=== PATIENT | female | born 1980 | race Caucasian/White ===

== ENCOUNTER → 2018-07-23 | Outpatient (CLI) | payer OTHER ==
--- NOTE | 2018-07-23 15:40 | Diagnostic Imaging Report ---
INDICATION: Left axillary lump. TECHNIQUE: Sonographic interrogation of the area of lump in the left axilla was performed. FINDINGS: No sonographic abnormality is seen. No solid or cystic mass is detected. IMPRESSION: No sonographic abnormality is seen. Close clinical and self followup is recommended to confirm stability of the palpable abnormality. Negative imaging should not necessarily preclude biopsy of a clinically suspicious palpable abnormality. ACR BI-RADS Category 1: Negative. Dictated by: Dictated on workstation # [id number]
--- NOTE | 2018-07-23 15:51 | Diagnostic Imaging Report ---
INDICATION: Palpable lump in the left axilla. No prior mammograms are available for comparison. 2-D and 3-D bilateral diagnostic mammography was performed with a Computer Aided Detection (CAD) system. FINDINGS: Both breasts show marked parenchymal heterogeneity and increased density, limiting the sensitivity of mammography. BB marker is placed at the area of palpable abnormality in left axilla. Mild density at this location is seen, but no discrete mass or malignant-appearing microcalcifications are seen. Both breasts demonstrate some benign calcifications. IMPRESSION: No mammographic features suspicious for malignancy are identified. Even so, sonographic interrogation of the area of palpable abnormality in the left axilla is recommended and will be performed today. ACR BI-RADS Category 0: Incomplete. (Needs additional imaging evaluation). Result letter will be mailed to the patient. Note: At least 10% of breast cancer is not imaged by mammography. Dictated by: Dictated on workstation # [id number]
== END ==
LOC: RAD 13:29
PROVIDERS: ATTEND Family Medicine
DX: N63.32 Unspecified lump in axillary tail of the left breast (principal)
CPT/HCPCS: 76642; 77066

== ENCOUNTER 2020-06-13 23:47 | Emergency (ER) | payer OTHER ==
--- NOTE | 2020-06-14 00:17 | ED Abdominal Pain ---
General Stated Complaint: ABD PAIN Source of Information: Patient Exam Limitations: No Limitations (ATUL GEORGE,) History of Present Illness Date Seen by Provider: Jun 14, 2020 Time Seen by Provider: 00:12 Initial Comments Ms. Zayas is a 39-year-old female who presented to the ED for abdominal pain. It began 3-4 days ago and is progressively increasing. She states it is localized near her belly button and in her right lower quadrant. It will occasionally "shoot up" under her rib cage. It is a 4/10 constantly with increasing pain to 7/10 when it radiates toward her rib cage. Admits to chills and nausea and denies any chest pain, shortness of breath, vomiting, diarrhea, dysuria, hematuria or fevers. Timing/Duration: 3-4 Days Severity/Quality: Mild Location: RLQ, Periumbilical Radiation: Other (under rib cage) Modifying Factors: Improves With Lying down Associated Symptoms: Fever/Chills, Nausea/Vomiting; No Shortness of Air (ATUL GEORGE,) Allergies and Home Medications Allergies Coded Allergies: No Known Drug Allergies (Unverified , 06/14/20) Patient Home Medication List Home Medication List Reviewed: Yes (ATUL GEORGE,) Home Medication List Reviewed: Yes (ROSSANA GRIDER MD) Review of Systems Review of Systems Constitutional: chills; No fever EENTM: No Blurred Vision Respiratory: Denies Cough, Denies Shortness of Air Cardiovascular: Denies Chest Pain, Denies Edema Gastrointestinal: Nausea; Denies Vomiting Genitourinary: Denies Burning, Denies Hematuria Musculoskeletal: No back pain, No muscle pain Skin: No dryness, No rash Psychiatric/Neurological: Denies Headache, Denies Numbness Endocrine: No Symptoms Reported Hematologic/Lymphatic: No Symptoms Reported (ATUL GEORGE,) All Other Systems Reviewed Negative Unless Noted: Yes (ROSSANA GRIDER MD) Past Mycfgdx-Clbpgi-Vkmwye Hx Past Med/Social Hx: Reviewed Nursing Past Med/Soc Hx, Reviewed and Corrections made (ATUL GEORGE,) Patient Social History Alcohol Use: Denies Use Smoking Status: Never a Smoker (ATUL GEORGE,) Past Medical History Surgeries: Yes Hysterectomy Respiratory: No Cardiac: No Neurological: No : No Reproductive Disorders: No Genitourinary: No Gastrointestinal: No Musculoskeletal: No Endocrine: No HEENT: No Cancer: No (ATUL GEORGE,) Family Medical History Reviewed Nursing Family Hx (ROSSANA GRIDER MD) No Pertinent Family Hx (ATUL GEORGE,) Physical Exam Vital Signs Vital Signs - First Documented 06/14/20 00:02 Temp 37.6 Pulse 104 Resp 16 B/P (MAP) 124/76 (92) Pulse Ox 97 O2 Delivery Room Air (ROSSANA GRIDER MD) Vital Signs Capillary Refill : (ATUL GEORGE,) Height/Weight/BMI Height: '" Weight: lbs. oz. kg; BMI Method: General Appearance: WD/WN, mild distress HEENT: PERRL/EOMI, pharynx normal Neck: supple, normal inspection Respiratory: lungs clear, normal breath sounds Cardiovascular: regular rate, rhythm, no murmur Gastrointestinal: normal bowel sounds, soft, tenderness (RLQ) Extremities: non-tender, no pedal edema Back: normal inspection, CVA tenderness (R) Neurologic/Psychiatric: alert, oriented x 3 Skin: normal color, warm/dry (ATUL GEORGE,) General Appearance: WD/WN, mild distress Respiratory: lungs clear, normal breath sounds Cardiovascular: regular rate, rhythm, no murmur Gastrointestinal: soft, tenderness (RLQ) Extremities: non-tender, no pedal edema Back: CVA tenderness (R); No CVA tenderness (L) Neurologic/Psychiatric: alert Skin: normal color, warm/dry (ROSSANA GRIDER MD) Progress/Results/Core Measures Results/Orders Lab Results Laboratory Tests Test 06/14/20 00:15 06/14/20 01:10 Range/Units White Blood Count 8.2 4.3-11.0 10^3/uL Red Blood Count 4.36 4.35-5.85 10^6/uL Hemoglobin 12.1 11.5-16.0 G/DL Hematocrit 37 35-52 % Mean Corpuscular Volume 85 80-99 FL Mean Corpuscular Hemoglobin 28 25-34 PG Mean Corpuscular Hemoglobin Concent 33 32-36 G/DL Red Cell Distribution Width 12.5 10.0-14.5 % Platelet Count 283 130-400 10^3/uL Mean Platelet Volume 9.7 7.4-10.4 FL Immature Granulocyte % (Auto) 1 % Neutrophils (%) (Auto) 74 42-75 % Lymphocytes (%) (Auto) 14 12-44 % Monocytes (%) (Auto) 11 0-12 % Eosinophils (%) (Auto) 0 0-10 % Basophils (%) (Auto) 0 0-10 % Neutrophils # (Auto) 6.1 1.8-7.8 X 10^3 Lymphocytes # (Auto) 1.2 1.0-4.0 X 10^3 Monocytes # (Auto) 0.9 0.0-1.0 X 10^3 Eosinophils # (Auto) 0.0 0.0-0.3 10^3/uL Basophils # (Auto) 0.0 0.0-0.1 10^3/uL Immature Granulocyte # (Auto) 0.0 0.0-0.1 10^3/uL Sodium Level 136 135-145 MMOL/L Potassium Level 4.0 3.6-5.0 MMOL/L Chloride Level 99 98-107 MMOL/L Carbon Dioxide Level 26 21-32 MMOL/L Anion Gap 11 5-14 MMOL/L Blood Urea Nitrogen 13 7-18 MG/DL Creatinine 0.79 0.60-1.30 MG/DL Estimat Glomerular Filtration Rate > 60 BUN/Creatinine Ratio 16 Glucose Level 107 H 70-105 MG/DL Calcium Level 9.8 8.5-10.1 MG/DL Corrected Calcium 8.5-10.1 MG/DL Total Bilirubin 0.4 0.1-1.0 MG/DL Aspartate Amino Transf (AST/SGOT) 25 5-34 U/L Alanine Aminotransferase (ALT/SGPT) 34 0-55 U/L Alkaline Phosphatase 95 40-136 U/L C-Reactive Protein 3.74 H <0.50 MG/DL Total Protein 8.0 6.4-8.2 GM/DL Albumin 4.8 H 3.2-4.5 GM/DL Urine Color YELLOW Urine Clarity CLEAR Urine pH 6.0 5-9 Urine Specific [place] 1.025 H 1.016-1.022 Urine Protein 1+ H NEGATIVE Urine Glucose (UA) NEGATIVE NEGATIVE Urine Ketones 1+ H NEGATIVE Urine Nitrite NEGATIVE NEGATIVE Urine Bilirubin NEGATIVE NEGATIVE Urine Urobilinogen 0.2 < = 1.0 MG/DL Urine Leukocyte Esterase NEGATIVE NEGATIVE Urine RBC (Auto) TRACE H NEGATIVE Urine RBC 2-5 H /HPF Urine WBC 2-5 /HPF Urine Squamous Epithelial Cells 2-5 /HPF Urine Crystals NONE /LPF Urine Bacteria NEGATIVE /HPF Urine Casts NONE /LPF Urine Mucus MODERATE H /LPF Urine Culture Indicated NO (ROSSANA GRIDER MD) My Orders Orders - ROSSANA GRIDER MD Cbc With Automated Diff (06/14/20 00:21) Comprehensive Metabolic Panel (06/14/20 00:21) Ua Culture If Indicated (06/14/20 00:21) Ondansetron Injection (Zofran Injectio (06/14/20 00:30) Ns Iv 1000 Ml (Sodium Chloride 0.9%) (06/14/20 00:21) Ed Iv/Invasive Line Start (06/14/20 00:21) Ketorolac Injection (Toradol Injection) (06/14/20 00:33) Crp Fs (06/14/20 00:21) Ct Abdomen/Pelvis Wo (06/14/20 01:25) (ROSSANA GRIDER MD) Medications Given in ED Current Medications Medications Dose Ordered Sig/Ciro Route Start Time Stop Time Status Last Admin Dose Admin Ondansetron HCl 4 mg ONCE ONCE IVP 06/14/20 00:30 06/14/20 00:31 DC 06/14/20 00:33 4 MG (ROSSANA GRIDER MD) Vital Signs/I&O 06/14/20 00:02 Temp 37.6 Pulse 104 Resp 16 B/P (MAP) 124/76 (92) Pulse Ox 97 O2 Delivery Room Air (ROSSANA GRIDER MD) Progress Progress Note : Time: 00:17 Progress Note IV placed. Will order CBC, CMP, U/A with culture. Monitor. Pain management. Will decide further investigation as information results. (ATUL GEORGE,) Progress Note : Progress Note I have seen and evaluated the patient and agree with above except as indicated. I have directed the plan of care. Patient is here with right-sided abdominal pain that goes from lower to up under her rib cage. Denies vomiting or diarrhea. Denies dysuria. Has had previous hysterectomy. 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 Pain has persisted over a few days and became a little bit more concerning tonight. Walking without difficulty. No pain with walking. Evaluation as above. Plan for labs and UA. Ultimately it was decided to do CT abdomen pelvis without contrast as UA did show blood and white blood cells although rare on both. White count was normal on CBC and CRP was slightly elevated. Mucus noted in UA. Possible kidney stone as cause of pain. Monitor patient. 0245: CT results noted. No significant abnormalities noted including no stones and normal appendix noted. I did discuss this with the patient. She is feeling much better and would like to go home. There is question of some right-sided constipation and we did discuss MiraLAX. Discharged home with return precautions. Patient verbalized understanding of instructions and agreement with plan. (ROSSANA GRIDER MD) Diagnostic Imaging Diagonstic Imaging: CT Plain Films/CT/US/NM/MRI: abdomen, pelvis Comments Symmetric pelviectasis of the kidneys is noted. No calyceal dilation to suggest hydronephrosis. No nephrolithiasis. There is similar mild bilateral ureteral distention without evidence for ureteral stones. No bladder calcifications. Evaluation of the bowel mucosa is slightly limited without contrast; however, no definite focal asymmetry suggested. No evidence for bowel obstruction. No free intraperitoneal fluid or pneumoperitoneum. Incidental normal caliber appendix in the right lower quadrant. Reviewed: Reviewed [place] Study, Reviewed by Me (ROSSANA GRIDER MD) Departure Impression Primary Impression: Right sided abdominal pain Disposition: 01 HOME, SELF-CARE Condition: Improved Departure-Patient Inst. Decision time for Depature: 02:42 (ROSSANA GRIDER MD) Referrals: ROSY KAUFFMAN APRN (PCP/Family) Primary Care Physician Patient Instructions: Abdominal Pain, Adult ED Add. Discharge Instructions: Use a light diet for the next few days and then advance as tolerated. Drink plenty of fluids. You can consider MiraLAX or the generic 1 capful once or twice a day for the next few days and then as needed to achieve normal bowel movement. You may take Tylenol/acetaminophen and/or ibuprofen as needed for pain per package directions. Return for worse pain, fever, vomiting, weakness, breathing problems or other concerns as needed. ATUL GEORGE, Jun 14, 2020 00:17 ROSSANA GRIDER MD Jun 14, 2020 02:43
[2020-06-14] MEDS ORDERED: NS IV 1000 ML 1,000 ML IV STA (00:21)
[2020-06-14] MEDS ORDERED: ONDANSETRON 4 MG/2 ML (SDV) Z0FRAN IVP ONE (00:30)
[2020-06-14] MEDS ORDERED: KETOROLAC 30 MG/ML VIAL IVP STA (00:33)
[2020-06-14 01:02] LABS: BASOPHILS % (AUTO) 0 % (0-10); EOSINOPHILS % (AUTO) 0 % (0-10); HEMATOCRIT 37 % (35-52); HEMOGLOBIN 12.1 G/DL (11.5-16.0); LYMPHOCYTES # (AUTO) 1.2 X 10^3 (1.0-4.0); LYMPHOCYTES % (AUTO) 14 % (12-44); MEAN CORPUSCULAR HEMOGLOBIN 28 PG (25-34); MEAN CORPUSCULAR HGB CONC 33 G/DL (32-36); MEAN CORPUSCULAR VOLUME 85 FL (80-99); MEAN PLATELET VOLUME 9.7 FL (7.4-10.4); MONOCYTES # (AUTO) 0.9 X 10^3 (0.0-1.0); MONOCYTES % (AUTO) 11 % (0-12); NEUTROPHILS # (AUTO) 6.1 X 10^3 (1.8-7.8); NEUTROPHILS % (AUTO) 74 % (42-75); PLATELET COUNT 283 10^3/uL (130-400); WHITE BLOOD COUNT 8.2 10^3/uL (4.3-11.0)
[2020-06-14 01:03] LABS: ALANINE AMINOTRANSFERASE 34 U/L (0-55); ALBUMIN 4.8 GM/DL (3.2-4.5); ALKALINE PHOSPHATASE 95 U/L (40-136); BILIRUBIN,TOTAL 0.4 MG/DL (0.1-1.0); BUN/CREATININE RATIO 16; CALCIUM 9.8 MG/DL (8.5-10.1); CARBON DIOXIDE 26 MMOL/L (21-32); CHLORIDE 99 MMOL/L (98-107); CREATININE SERUM 0.79 MG/DL (0.60-1.30); GFR ESTIMATED > 60; GLUCOSE 107 MG/DL (70-105); SODIUM 136 MMOL/L (135-145)
[2020-06-14 01:14] LABS: BILIRUBIN,URINE NEGATIVE (NEGATIVE); CLARITY,URINE CLEAR; COLOR,URINE YELLOW; GLUCOSE, URINE (UA) NEGATIVE (NEGATIVE); KETONES,URINE 1+ (NEGATIVE); LEUKOCYTE ESTERASE ,URINE NEGATIVE (NEGATIVE); NITRITE,URINE NEGATIVE (NEGATIVE); PROTEIN,URINE 1+ (NEGATIVE)
[2020-06-14 01:18] LABS: BACTERIA,URINE NEGATIVE /HPF
[2020-06-14 02:48] VITALS: BP 123/68
--- NOTE | 2020-06-14 07:37 | Diagnostic Imaging Report ---
PROCEDURE: CT abdomen and pelvis without contrast. TECHNIQUE: Multiple contiguous axial images were obtained through the abdomen and pelvis without the use of intravenous contrast. Auto Exposure Controls were utilized during the CT exam to meet ALARA standards for radiation dose reduction. DATE: June 14, 2020. COMPARISON: None. INDICATION: 39-year-old female, right lower quadrant abdominal pain and hematuria. FINDINGS: There are limitations for evaluation of the abdominal organs, neoplastic processes, abscess, and limited evaluation of the vasculature relating to the lack of intravenous contrast. There is a 5 mm right lower lobe pulmonary nodule on axial image 2. There is mild dependent atelectasis in the right and left lower lobes. The heart is not enlarged. There is no pericardial effusion. The liver is unremarkable in size and contour. The gallbladder is unremarkable. There is no intrahepatic or extrahepatic bile duct dilation. The main pancreatic duct is not grossly dilated. Limited noncontrast evaluation of the pancreatic parenchyma is unremarkable. The spleen is normal in size. Small calcifications in the spleen are most compatible with sequela of prior granulomatous disease. The adrenal glands are unremarkable. Limited noncontrast evaluation of the renal parenchyma is unremarkable. The urinary collecting systems are not distended. There is no identified renal or ureteral stone. The urinary bladder is unremarkable. There is mild diverticulosis without evidence of acute diverticulitis. The appendix is best seen on axial image 112 and adjacent sequential images. There is no evidence of acute appendicitis. The intestinal tract is not distended. There is no free intraperitoneal air. There is no drainable fluid collection. There is no free pelvic fluid. Uterus is not seen and may be surgically absent. There are vascular calcifications present. There is severe disc height loss at L5-S1. There is no identified acute bony abnormality. IMPRESSION: CT ABDOMEN AND PELVIS. 1. No identified acute abnormality in the abdomen or pelvis. 2. 5 mm right lower lobe pulmonary nodule. Dictated by: Dictated on workstation # [id number]
== END 2020-06-14 02:53 | disposition home or self-care (01) ==
LOC: EDUNIT# 23:47 → ER FS 23:52
DX: R10.31 Right lower quadrant pain (principal)
CPT/HCPCS: 36415; 74176; 80053; 81000; 85025; 86141